=== PATIENT | male | born 1980 | race Caucasian/White ===

== ENCOUNTER 2025-04-29 12:51 | Emergency (ER) | payer OTHER ==
[2025-04-29] MEDS: methylPREDNISolone Sodium Succinate 125 MG/2 ML SDV IM ONE (13:19)
== END 2025-04-29 13:45 | disposition home or self-care (01) ==
LOC: KA.ED 12:51
DX: L30.9 Dermatitis, unspecified (principal); Z79.899 Other long term (current) drug therapy
CPT/HCPCS: 96372; 99282; J2919